=== PATIENT | female | born 1935 | race Caucasian/White ===

== ENCOUNTER 2017-03-05 18:25 | Emergency (ER) | payer MEDICARE ==
[2017-03-05 20:28] LABS: HEMOGLOBIN 13.5 gm/dl (12.3-15.3); RED BLOOD COUNT 4.57 M/UL (4.00-5.10); WHITE BLOOD COUNT 8.9 K/UL (4.5-11.0)
== END 2017-03-05 23:19 | disposition home or self-care (01) ==
LOC: ER1 18:25
PROVIDERS: Emergency Medicine
DX: R33.9 Retention of urine, unspecified (principal); R10.30 Lower abdominal pain, unspecified
CPT/HCPCS: 36415; 80053; 81001; 84484; 85025; 85610; 85730; 87086; 99284

== ENCOUNTER → 2021-02-09 | Outpatient (CLI) | payer MEDICARE, SELFPAY ==
[~2021-02-09] MED LIST: CEFUROXIME500 MG PO; DIABETA 5 MG TAB5 MG PO; FEOSOL325 MG PO; GLUCERNA237 ML PO; GLUCOTROL 10 MG10 MG PO; HYDROCODON-ACE1 EAC2 PO; KLONOPIN TAB 00.5 MG PO; LOPRESSOR50 MG PO; MELATONIN5 M5 PO; NORCO 7.5-3251 EACH PO; NORVASC 5 MG TAB5 MG PO; OMNICEF 300 MG300 MG PO; PRINIVIL5 MG PO; THERAGRAN M TAB1 EA PO; VITAMIN B-121000 MCG PO; VITAMIN D32000 UNI1 PO; ZOLOFT100 MG PO
== END ==
LOC: NM 02-03 08:10
DX: C50.812 Malignant neoplasm of overlapping sites of left female breast (principal); C78.7 Secondary malignant neoplasm of liver and intrahepatic bile duct; C79.51 Secondary malignant neoplasm of bone; C78.02 Secondary malignant neoplasm of left lung
CPT/HCPCS: 78306; A9503

== ENCOUNTER → 2021-03-02 | Outpatient (CLI) | payer MEDICARE | LOC: CT 15:03 | DX: C50.812 Malignant neoplasm of overlapping sites of left female breast (principal); C78.7 Secondary malignant neoplasm of liver and intrahepatic bile duct; C79.51 Secondary malignant neoplasm of bone; C78.02 Secondary malignant neoplasm of left lung | CPT/HCPCS: 36415; 82565 ==

== ENCOUNTER → 2021-07-07 | Outpatient (CLI) | payer MEDICARE | LOC: NM 07-03 09:10 | DX: C50.812 Malignant neoplasm of overlapping sites of left female breast (principal); C79.51 Secondary malignant neoplasm of bone; C78.7 Secondary malignant neoplasm of liver and intrahepatic bile duct; C78.02 Secondary malignant neoplasm of left lung | CPT/HCPCS: 78306; A9503 ==

== ENCOUNTER → 2021-09-21 | Outpatient (CLI) | payer MEDICARE | LOC: CT 08-20 10:00 | DX: C50.812 Malignant neoplasm of overlapping sites of left female breast (principal); C78.7 Secondary malignant neoplasm of liver and intrahepatic bile duct; C79.51 Secondary malignant neoplasm of bone; C78.02 Secondary malignant neoplasm of left lung | CPT/HCPCS: 71260; Q9967 ==

== ENCOUNTER → 2021-10-13 | Outpatient (CLI) | payer MEDICARE | LOC: NM 10-08 09:10 | DX: C50.612 Malignant neoplasm of axillary tail of left female breast (principal); C79.51 Secondary malignant neoplasm of bone; C78.02 Secondary malignant neoplasm of left lung; C78.7 Secondary malignant neoplasm of liver and intrahepatic bile duct | CPT/HCPCS: 78306; A9503 ==

== ENCOUNTER → 2022-02-11 | Outpatient (CLI) | payer MEDICARE | LOC: CT 13:36 | DX: C50.812 Malignant neoplasm of overlapping sites of left female breast (principal); C78.7 Secondary malignant neoplasm of liver and intrahepatic bile duct; C79.51 Secondary malignant neoplasm of bone; C78.02 Secondary malignant neoplasm of left lung | CPT/HCPCS: 71260; Q9965 ==

== ENCOUNTER → 2022-02-22 | Outpatient (CLI) | payer MEDICARE, OTHER | LOC: NM 02-08 08:10 | DX: C50.812 Malignant neoplasm of overlapping sites of left female breast (principal); C78.7 Secondary malignant neoplasm of liver and intrahepatic bile duct; C79.51 Secondary malignant neoplasm of bone; C78.02 Secondary malignant neoplasm of left lung | CPT/HCPCS: 78306; A9503 ==

== ENCOUNTER → 2022-03-10 | Outpatient (CLI) | payer MEDICARE | LOC: MRI 10:00 | DX: C50.812 Malignant neoplasm of overlapping sites of left female breast (principal); C78.7 Secondary malignant neoplasm of liver and intrahepatic bile duct; C79.51 Secondary malignant neoplasm of bone; C78.02 Secondary malignant neoplasm of left lung; R93.7 Abnormal findings on diagnostic imaging of other parts of musculoskeletal system | CPT/HCPCS: 70553; A9577 ==

== ENCOUNTER → 2022-07-14 | Outpatient (CLI) | payer MEDICARE | LOC: NM 08:10 | DX: C50.812 Malignant neoplasm of overlapping sites of left female breast (principal); C78.7 Secondary malignant neoplasm of liver and intrahepatic bile duct; C79.51 Secondary malignant neoplasm of bone; C78.02 Secondary malignant neoplasm of left lung | CPT/HCPCS: 78306; A9503 ==

== ENCOUNTER → 2022-07-16 | Outpatient (CLI) | payer OTHER | LOC: CT 09:30 | DX: C50.812 Malignant neoplasm of overlapping sites of left female breast (principal); C78.7 Secondary malignant neoplasm of liver and intrahepatic bile duct; C79.51 Secondary malignant neoplasm of bone; C78.02 Secondary malignant neoplasm of left lung | CPT/HCPCS: 71260; Q9967 ==

== ENCOUNTER 2022-07-17 14:35 | Emergency (ER) | payer MEDICARE, OTHER ==
[2022-07-17 15:31] LABS: HEMOGLOBIN 11.6 gm/dl (12.3-15.3); RED BLOOD COUNT 3.04 M/UL (4.00-5.10); WHITE BLOOD COUNT 7.2 K/UL (4.5-11.0)
== END 2022-07-17 16:47 | disposition home or self-care (01) ==
LOC: ER1 14:35
PROVIDERS: Emergency Medicine
DX: E86.0 Dehydration (principal); C79.81 Secondary malignant neoplasm of breast
CPT/HCPCS: 80053; 83880; 84484; 85025; 93005; 96361; 96374; 99284; J2405